=== PATIENT | female | born 1995 | race Caucasian/White ===

== ENCOUNTER 2016-07-12 13:04 | Emergency (ER) | payer BC ==
[2016-07-12] MEDS ORDERED: NS 0.9% 1000 ML* 1,000 ML IV ONE (14:03)
--- NOTE | 2016-07-12 14:03 | UC ---
UC General HPI - HPI Summary HPI Summary: complaint of N/V/D that started last night at 1900 body aches and fever started last night vomiting once a hour since last night, continual diarrhea RUQ/LUQ pain when vomiting denies blood in stool stool is now watery denies dysuria hasn't taken any medications for pain d/t vomiting - History of Current Complaint Chief Complaint: UCGeneralIllness Stated Complaint: N/V/D Time Seen by Provider: 07/12/16 13:57 Hx Obtained From: Patient Associated Signs & Symptoms: Positive: Abdominal Pain, Nausea, Vomiting - Allergy/Home Medications Allergies/Adverse Reactions: Allergies Allergy/AdvReac Type Severity Reaction Status Date / Time Sulfa Antibiotics Allergy Severe Rash Verified 07/12/16 13:22 Home Medications: Home Medications Fluvoxamine (NF) [Luvox (NF)] 07/12/16 [History] PMH/Surg Hx/FS Hx/Imm Hx Previously Healthy: Yes Cardiovascular History Of: Denies: Pacemaker/ICD - Surgical History Surgical History: Yes Surgery Procedure, Year, and Place: GALLBLADDER - Family History Known Family History: Negative: Cardiac Disease, Hypertension, Diabetes - Social History Occupation: Employed Full-time Lives: With Family Alcohol Use: Rare Substance Use Type: None Smoking Status (MU): Unknown if Ever Smoked Review of Systems Constitutional: Fever, Chills, Fatigue Skin: Negative Eyes: Negative ENT: Negative Respiratory: Negative Cardiovascular: Negative Gastrointestinal: Abdominal Pain, Vomiting, Diarrhea Genitourinary: Negative Motor: Negative Neurovascular: Negative Musculoskeletal: Negative Neurological: Negative Psychological: Negative All Other Systems Reviewed And Are Negative: Yes Physical Exam Triage Information Reviewed: Yes Appearance: Well-Nourished, Ill-Appearing Vital Signs: Initial Vital Signs Temp 100.1 F 07/12/16 13:26 Pulse 125 07/12/16 13:26 Resp 16 07/12/16 13:26 BP 113/78 07/12/16 13:26 Pulse Ox 99 07/12/16 13:26 Vital Signs Reviewed: Yes Eyes: Positive: Conjunctiva Clear ENT: Positive: Normal ENT inspection Neck: Positive: No Lymphadenopathy Respiratory: Positive: Lungs clear, Normal breath sounds, No respiratory distress Abdomen Description: Positive: No Organomegaly, Soft, Other: - slight RUQ LUQ tenderness. Negative: CVA Tenderness (R), CVA Tenderness (L), Distended, Guarding Bowel Sounds: Positive: Hyperactive Musculoskeletal: Positive: No Edema Neurological: Positive: Alert Psychological Exam: Normal Skin Exam: Normal Re-Evaluation - Re-Evaluation First Eval Change: Improved - nausea and vomiting resolved HR lower Course/Dx - Course Course Of Treatment: exam completed. febrile, tachycardia d/t N/V/D. will treat nausea and rehydrate the re-evaluate. symptoms resolving, will treat with zofran - Differential Dx - Multi-Symptom Provider Diagnoses: gastroenteritis Discharge - Discharge Plan Condition: Stable Disposition: HOME Prescriptions: Ondansetron TAB* [Zofran Tab*] 8 mg PO Q8H PRN #10 tab PRN Reason: Nausea Patient Education Materials: Gastroenteritis (ED) Referrals: No Primary Care Phys,NOPCP [Primary Care Provider] - Additional Instructions: start taking zofran for nausea increase fluids as tolerated Please review your discharge instructions. If your symptoms do not improve please call your primary care provider or return to urgent care. GASTROENTERITIS What is Gastroenteritis? Gastroenteritis is an inflammation of the stomach and bowel that is often called the stomach "flu.'' It should only last 1 or 2 days. You usually get gastroenteritis because you've been in contact with someone who's already infected or because you've eaten contaminated food, or drank contaminated water. Many different viruses can cause intestinal problems but the signs and symptoms are usually the same: watery diarrhea, abdominal cramps, and nausea or vomiting. Symptoms Might Include: Abdominal cramps Diarrhea Nausea Vomiting Blood or mucus in stools Muscle aches Headaches Fever Extreme exhaustion Treatment Recommendations: Decrease activity until you feel better or the diarrhea and vomiting are gone. Take clear liquids, such as quincy nicole, cola, water, tea, broth, and gelatin, for the first 24 hours or until the diarrhea and vomiting stops. During the next 24 hours you may eat bland foods like cooked cereals, rice, soup, bread, crackers, baked potatoes, eggs, or applesauce. Do not eat fruits, vegetables, fried or spicy foods, bran, candy, dairy products (such as milk or ice cream), apple juice, or alcoholic beverages. You may go back to your normal diet after 2 to 3 days. Drink 8 to 12 glasses of liquid a day. Most of the problems with gastroenteritis are caused by loss of water through vomiting and diarrhea. You may take ibuprofen (Motrin, Advil) or acetaminophen (Tylenol) for fever and muscle aches. Call Your Doctor or Return Here IF: Your symptoms last for more than 3 days. You have severe pain in the abdomen (area around the stomach) or rectum. You have a high temperature. You find blood, mucus, or worms in your stool. You have signs of dehydration (water loss), including dry mouth, excessive thirst, crinkled skin, little or no urination, dizziness, or light-headedness. You have any other new symptoms that worry you.
[2016-07-12] MEDS ORDERED: Acetaminophen TAB* 325 MG PO ONE (14:04)
[2016-07-12] MEDS ORDERED: Ondansetron INJ* 2 MG/ML VIAL IV ONE (14:04)
[2016-07-12 15:27] VITALS: BP 113/73
== END 2016-07-12 15:00 | disposition home or self-care (01) ==
LOC: UCEAST 13:04
DX: K52.9 Noninfective gastroenteritis and colitis, unspecified (principal); Z88.2 Allergy status to sulfonamides; Z90.49 Acquired absence of other specified parts of digestive tract
CPT/HCPCS: 96360; 96361; 96374; 99212; A9270-GY; G0463; J2405